=== PATIENT | female | born 2000 | race Caucasian/White ===

== ENCOUNTER 2025-04-13 10:55 | Emergency (ER) | payer BC, OTHER ==
[~2025-04-13] VITALS: Ht 165.1 cm; Wt 56.6 kg
[~2025-04-13 10:55] MED LIST: BIRTH CONTROL
[2025-04-13] MEDS ORDERED: PROZAC10 MG PO (11:08)
[2025-04-13] MEDS ORDERED: LEXAPRO10 MG PO (11:09)
[2025-04-13 11:15] LABS: BLOOD/HGB, URINE SMALL (Negative); KETONE, URINE NEGATIVE (Negative); LEUK ESTERASE, URINE TRACE (negative); NITRITE, URINE NEGATIVE (negative)
[2025-04-13 11:20] LABS: EPITHELIAL CELLS, URINE SQUAMOUS 2+ /lpf (0-1+)
[2025-04-13 11:21] LABS: BACTERIA, URINE RARE /hpf (negative); CASTS, URINE NONE SEEN \\lpf; CRYSTALS, URINE NONE SEEN (0-1+); REFLEX CULTURE, URINE No (No)
[2025-04-13] MEDS ORDERED: CEPHALEXIN500 MG PO (11:38)
[2025-04-13] MEDS ORDERED: CEPHALEXIN MONOHYDRATE 500 MG CAP PO ONE (11:45)
[2025-04-13 11:46] VITALS: BP 102/67
== END 2025-04-13 11:46 | disposition home or self-care (01) ==
LOC: ED 10:55
PROVIDERS: Emergency Medicine
DX: N39.0 Urinary tract infection, site not specified (principal); I44.2 Atrioventricular block, complete; Z95.0 Presence of cardiac pacemaker; Z79.899 Other long term (current) drug therapy
CPT/HCPCS: 81001; 84703; 99283; A9270

== ENCOUNTER 2025-07-13 14:05 | Emergency (ER) | payer OTHER ==
[~2025-07-13] VITALS: Ht 165.1 cm; Wt 57.4 kg
[~2025-07-13 14:05] MED LIST changes: +CEPHALEXIN500 MG PO; +LEXAPRO10 MG PO; +PROZAC10 MG PO
[2025-07-13] MEDS ORDERED: FLUOXETINE HCL20 MG PO (15:28)
[2025-07-13] MEDS ORDERED: DIPHTH,PERTUSS(ACELL),TET VAC 0.5 ML SYRINGE IM ONE (15:30)
[2025-07-13 16:30] VITALS: BP 114/67
== END 2025-07-13 17:31 | disposition home or self-care (01) ==
LOC: ED 14:05
DX: S01.112A Laceration without foreign body of left eyelid and periocular area, initial encounter (principal); W01.10XA Fall on same level from slipping, tripping and stumbling with subsequent striking against unspecified object, initial encounter; Z23 Encounter for immunization; Z95.0 Presence of cardiac pacemaker
CPT/HCPCS: 12013; 90471; 90715; 99282-25